=== PATIENT | male | born 1995 | race Caucasian/White ===

== ENCOUNTER 2017-02-20 01:44 | Emergency (ER) | payer BC ==
[~2017-02-20] VITALS: Ht 160 cm; Wt 56.0 kg
[2017-02-20 01:47] VITALS: Ht 160 cm; Wt 56.0 kg
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
--- NOTE | 2017-02-20 04:26 | RADRPT ---
PROCEDURE: CT brain without contrast. CLINICAL INDICATION: Injury and pain. TECHNIQUE: CT scan of the brain was performed on a multi-detector high-resolution CT scanner. Co ntiguous axial images were obtained from the skull base to the vertex without intravenous contrast. Coronal and sagittal reformatted images were also obtained. Images were reviewed on the PACS works tation. One or more of the following dose reduction techniques were used: - Automated exposure control. - Adjustment of the mA and/or kV according to patient size. - Use of iterative reconstruction technique. Exam CTD/vol = 45.01 mGy. Total exam DLP = 720.23 mGy-cm. COMPARISON: 08/08/2013. FINDINGS: The ventricles and cortical sulci are within normal limits for patient's age. There are no areas of abnormal attenuation within the brain parenchyma. There is no mass effect or midline shift. There is no intracranial hemorrhage or abnormal extra-axial collection. The calvarium is intact. There is no evidence of fracture. Visualized paranasal sinuses and mastoid air cells are clear. IMPRESSION: No acute intracranial abnormality identified. .Rl Ballard MD, MD Date Time Electronically viewed and signed by .Rl Ballard MD, MD on 02/20/2017 04:26 .T/
--- NOTE | 2017-02-20 04:32 | RADRPT ---
PROCEDURE: CT Cervical Spine without contrast. CLINICAL INDICATION: Injury and pain. TECHNIQUE: CT scan of the cervical spine was performed on a multi-detector high-resolution CT [facility]. Contiguous axial images were obtained without intravenous contrast. Coronal and sagittal ref ormatted images were also obtained. Images were reviewed on the PACS workstation. One or more of the following dose reduction techniques were used: - Automated exposure control. - Adjustment of the mA and/or kV according to patient size. - Use of iterative reconstruction technique. Exam CTD/vol = 22.29 mGy. Total exam DLP = 550.02 mGy-cm. COMPARISON: None. FINDINGS: There is no acute fracture or subluxation. There is straightening of the cervical lordosis. Cervic al vertebral body heights and alignment are otherwise within normal limits. The craniovertebral chris ction is within normal limits. Intervertebral disk spaces are within normal limits. There is no ce ntral canal or neural foraminal stenosis. There is no paraspinal mass or collection. IMPRESSION: No acute fracture or subluxation. .Rl Ballard MD, MD Date Time Electronically viewed and signed by .Rl Ballard MD, MD on 02/20/2017 04:31 .T/
--- NOTE | 2017-02-20 04:37 | RADRPT ---
PROCEDURE: CT Lumbar Spine without contrast. CLINICAL INDICATION: Back pain. TECHNIQUE: CT scan of the lumbar spine [facility] Contiguous axial images were obtained without intravenous contrast. Coronal and sagittal refor matted images were also obtained. Images were reviewed on the PACS workstation. One or more of the following dose reduction techniques were used: - Automated exposure control. - Adjustment of the mA and/or kV according to patient size. - Use of iterative reconstruction technique. Exam CTD/vol = 8.46 mGy. Total exam DLP = 293.55 mGy-cm. COMPARISON: None. FINDINGS: Lumbar vertebral body heights and alignment are within normal limits. There is no acute fracture or subluxation. There is a lucent area within the superior aspect of the S1 vertebral body compatible with a Schmorl's node. There is a small Schmorl's node within the superior endplate of L5. At T12-L1, the disk height is within normal limits. There is no central canal or neural foraminal s tenosis. At L1-L2, the disk height is within normal limits. There is no central canal or neural foraminal st enosis. At L2-L3, the disk height is within normal limits. There is no central canal or neural foraminal st enosis. At L3-L4, the disk height is within normal limits. There is no central canal or neural foraminal st enosis. At L4-L5, the disk height is within normal limits. There is a mild posterior disk bulge. There is no central canal or neural foraminal stenosis. At L5-S1, the disk height is within normal limits. There is a mild posterior disk bulge. There is no central canal stenosis. There is mild right neural foraminal stenosis. There is no paraspinal mass or collection. IMPRESSION: No acute fracture or subluxation. Mild posterior disk bulges at L4-L5 and L5-S1. Mild right neural foraminal stenosis at L5-S1. .Rl Ballard MD, MD Date Time Electronically viewed and signed by .Rl Ballard MD, MD on 02/20/2017 04:36 .T/
--- NOTE | 2017-02-20 04:43 | RADRPT ---
PROCEDURE: Chest. CLINICAL INDICATION: Chest pain. TECHNIQUE: PA and Lateral views of the chest were obtained. COMPARISON: None. FINDINGS: The cardiac silhouette is within normal limits. The aortic arch is unremarkable. There is no focal c onsolidation, vascular congestion or pleural effusion. There is no pneumothorax. The osseous structu res are grossly intact. IMPRESSION: No acute cardiopulmonary process identified. .Rl Ballard MD, MD Date Time Electronically viewed and signed by .Rl Ballard MD, on 02/20/2017 04:42 .T/
--- NOTE | 2017-02-20 04:44 | RADRPT ---
PROCEDURE: Left wrist. CLINICAL INDICATION: Pain. TECHNIQUE: 4 views including PA, lateral and oblique views were performed. COMPARISON: None. FINDINGS: There is no fracture, dislocation or bone destruction. The joint spaces are within normal limits. Bone mineralization is within normal limits. There is no radiopaque foreign body or abnormal calcif ication. IMPRESSION: No evidence of fracture. .Rl Ballard MD, Date Time Electronically viewed and signed by .Rl Ballard MD, on 02/20/2017 04:43 .T/
--- NOTE | 2017-02-20 04:45 | RADRPT ---
PROCEDURE: Right knee. CLINICAL INDICATION: Pain. TECHNIQUE: Three views including AP, lateral and oblique views of the right knee were obtained. The images reviewed on a PACS workstation. COMPARISON: None. FINDINGS: There is no fracture, dislocation or bone destruction. There is no significant joint space narrowin g or effusion. Bone mineralization is within normal limits. There is no radiopaque foreign body or abnormal calcification. IMPRESSION: No evidence of fracture. .Rl Ballard MD, Date Time Electronically viewed and signed by .Rl Ballard MD, MD on 02/20/2017 04:44 .T/
[2017-02-20] MEDS ORDERED: HYDR-906 PO (04:51)
[2017-02-20] MEDS ORDERED: CYCL-319 PO (04:51)
[2017-02-20] MEDS ORDERED: ACET500C5 PO (04:51)
[2017-02-20 05:03] VITALS: BP 128/78; PULSE 72; RESP 20; TEMP 98.5
== END 2017-02-20 05:04 | disposition home or self-care (01) ==
LOC: FTE 01:44
DX: S69.92XA Unspecified injury of left wrist, hand and finger(s), initial encounter (principal); S89.91XA Unspecified injury of right lower leg, initial encounter; S39.012A Strain of muscle, fascia and tendon of lower back, initial encounter; S16.1XXA Strain of muscle, fascia and tendon at neck level, initial encounter; S20.219A Contusion of unspecified front wall of thorax, initial encounter; S06.0X0A Concussion without loss of consciousness, initial encounter; F17.210 Nicotine dependence, cigarettes, uncomplicated; V49.40XA Driver injured in collision with unspecified motor vehicles in traffic accident, initial encounter
CPT/HCPCS: 70450; 71020; 72125; 72131; 73110; 73562; Z7502